=== PATIENT | male | born 1990 | race Caucasian/White ===

== ENCOUNTER 2019-03-10 08:30 | Emergency (ER) | payer MEDICARE, MEDICAID ==
[2019-03-10 08:41] VITALS: BP 131/77
[2019-03-10] MEDS ORDERED: LIDOCAINE 5% (700 MG) TRANSDERMAL ADH..PATCH TP ONE (09:25)
[2019-03-10] MEDS ORDERED: KETOROLAC TROMETHAMINE 60 MG/2 ML SDV IM ONE (09:25)
[2019-03-10] MEDS ORDERED: DEXAMETHASONE 4 MG TABLET PO ONE (09:25)
[2019-03-10] MEDS ORDERED: CYCLOBENZAPRINE HCL 10 MG TABLET PO ONE (09:25)
--- NOTE | 2019-03-10 09:29 | ER Document Report ---
HPI - HPI Time Seen by Provider: 03/10/19 09:20 Pain Level: 4 Notes: 28-year-old male patient with osteoarthritis in his back presenting with chronic back pain. Patient's mother is at bedside, they state that he has an appointment scheduled with pain management however it is not until April. His primary care is Dr. king. He denies any new trauma or injury. He denies any loss of control of bowel or bladder. - EENT EENT: DENIES: Sore Throat, Ear Pain, Eye problems - NEURO Neurology: DENIES: Headache, Weakness, Vision blurred - CARDIOVASCULAR Cardiovascular: DENIES: Chest pain - RESPIRATORY Respiratory: DENIES: Trouble Breathing, Coughing - GASTROINTESTINAL Gastrointestinal: DENIES: Abdominal Pain, Black / Bloody Stools - URINARY Urinary: DENIES: Dysuria, Urgency, Frequency - MUSCULOSKELETAL Musculoskeletal: DENIES: Extremity pain Past Medical History - General Information source: Patient - Social History Smoking Status: Never Smoker Chew tobacco use (# tins/day): No Frequency of alcohol use: None Drug Abuse: None Family History: Reviewed & Not Pertinent Patient has suicidal ideation: No Patient has homicidal ideation: No - Medical History Medical History: Negative Surgical Hx: Negative - Immunizations Immunizations up to date: Yes Vertical Provider Document - CONSTITUTIONAL Notes: PHYSICAL EXAMINATION: GENERAL: Well-appearing, well-nourished and in no acute distress. HEAD: Atraumatic, normocephalic. EYES: Pupils equal round extraocular movements intact, conjunctiva are normal. ENT: Nares patent NECK: Normal range of motion LUNGS: No respiratory distress Musculoskeletal: Tenderness in the lumbar paraspinous area bilaterally, no vertebral tenderness, step-off or deformity. NEUROLOGICAL: Face symmetric. Tongue protrudes midline. Extraocular motions intact. Pupils are 2 mm and equally reactive. Normal speech, normal gait. 5 out of 5 strength in both the distal and proximal upper and lower extremities bilaterally. Sensation is grossly intact throughout. Finger to nose testing normal. Pronator drift normal. PSYCH: Normal mood, normal affect. SKIN: Warm, Dry, normal turgor, no rashes or lesions noted. Course - Re-evaluation Re-evalutation: 03/10/19 09:27 Patient appears well, nontoxic, no red flag symptoms for cauda equina. Patient presenting with chronic back pain. Patient currently being set up for pain management. I explained to patient that we do not treat chronic back pain here in the emergency department. He needs to set up an appointment with his primary care provider. Patient will be medicated here in the emergency department I will prescribe a one-time prescription of 6 tablets of hydrocodone and I told him that this will not be able to be prescribed again. - Vital Signs Vital signs: Temp Pulse Resp BP Pulse Ox 97.9 F 103 H 16 131/77 H 99 03/10/19 08:36 03/10/19 08:36 03/10/19 08:36 03/10/19 08:36 03/10/19 08:36 Discharge - Discharge Clinical Impression: Back pain Qualifiers: Back pain location: low back pain Chronicity: acute Back pain laterality: right Sciatica presence: with sciatica Sciatica laterality: sciatica of right side Qualified Code(s): M54.41 - Lumbago with sciatica, right side Condition: Stable Disposition: HOME, SELF-CARE Additional Instructions: Low Back Pain Three out of every four people will have an episode of disabling back pain during their lifetime. Most commonly the pain is due to straining of the muscles and ligaments in the low back. Usual treatment includes: (1) Rest on a firm surface. Avoid lying on your stomach. (2) Ice pack the painful area. After a few days, gentle heat may be used intermittently to relax the area, or ice packs can be continued. (3) Medication may be needed -- muscle relaxers and antiinflammatory medicines are commonly used. (4) As the back improves, exercises are prescribed to strengthen the back and abdominal muscles. Your doctor will advise you on the proper care for your back at each stage in your recovery. You may be better in a few days -- or healing may take several weeks. If new symptoms of a "herniated disc" (radiation of pain, numbness, or ting ling down the back of the leg or weakness in the leg) occur, you should be re- examined. Further testing may be necessary. Chronic Back Pain Chronic back pain (pain persisting longer than three months) is a common problem. A medical evaluation can look for herniated disc, arthritis, osteoporosis, tumors, and infections. But at least half the time, there's no obvious treatable cause. Anxiety and depression tend to worsen back pain. Ibuprofen or other anti-inflammatory medicine can help. A heating pad, used for 15-20 minutes at a time, can ease pain. For this type of back pain, narcotic medicines should be avoided. Muscle relaxers are rarely helpful unless you're having spasms. Activity is important. Find an aerobic exercise program that your back can tolerate. Too much rest makes back pain worse. Specific back exercises are usually prescribed to strengthen the back and abdominal muscles. Often, a physical therapist can help. Avoid heavy lifting, working while bent over, or standing with both knees straight. Most back pain patients do better with a firm mattress. If new symptoms of a "herniated disc" (radiation of pain, numbness, or tingling down the back of the leg or weakness in the leg) occur, you should be re-examined. Prescriptions: Lidocaine [Lidoderm 5% (700 mg) Transdermal Patch] 1 patch TP DAILY #30 adh..patch Hydrocodone/Acetaminophen [[place] 5-325 mg Tablet] 1 tab PO Q6H #6 tablet
== END 2019-03-10 09:45 | disposition home or self-care (01) ==
LOC: ER 08:30
DX: M47.9 Spondylosis, unspecified (principal); M54.41 Lumbago with sciatica, right side; G89.29 Other chronic pain
CPT/HCPCS: 99283; 96372; A9270 ×3; J1885; J8540

== ENCOUNTER 2020-01-19 08:24 | Emergency (ER) | payer MEDICARE, MEDICAID ==
[2020-01-19 09:25] LABS: ABSOLUTE BASOPHILS # (AUTO) 0.1 10^3/uL (0.0-0.2); ABSOLUTE EOSINOPHILS # (AUTO) 0.1 10^3/uL (0.0-0.6); ABSOLUTE MONOCYTES (AUTO) 0.8 10^3/uL (0.1-1.4); ABSOLUTE NEUT (AUTO) 8.1 10^3/uL (1.7-8.2); BASOPHILS % (AUTO) 0.6 % (0-2); EOSINOPHILS % (AUTO) 0.7 % (0-6); HEMATOCRIT 51.3 % (37.9-51.0); HEMOGLOBIN 18.1 g/dL (13.5-17.0); LYMPHOCYTES % (AUTO) 24.8 % (13-45); MEAN CORPUSCULAR HEMOGLOBIN 30.8 pg (27.0-33.4); MEAN CORPUSCULAR HGB CONC 35.3 g/dL (32.0-36.0); MEAN CORPUSCULAR VOLUME 87 fl (80-97); MONOCYTES % (AUTO) 6.7 % (3-13); PLATELET COUNT 247 10^3/uL (150-450); RED BLOOD COUNT 5.89 10^6/uL (4.35-5.55); RED CELL DISTRIBUTION WIDTH 13.3 % (11.5-14.0); SEGMENTED NEUTROPHILS % (AUTO) 67.2 % (42-78); TOTAL CELLS COUNTED % (AUTO) 100 %
[2020-01-19 09:37] LABS: APPEARANCE,URINE SLIGHTLY-CLOUDY; BILIRUBIN,URINE NEGATIVE (NEGATIVE); COLOR,URINE YELLOW; GLUCOSE, URINE NEGATIVE (NEGATIVE); KETONES,URINE NEGATIVE (NEGATIVE); LEUKOCYTE ESTERASE,URINE NEGATIVE (NEGATIVE); NITRITE,URINE NEGATIVE (NEGATIVE); PROTEIN,URINE 30 mg/dL (NEGATIVE)
[2020-01-19 10:02] LABS: ALBUMIN 4.6 g/dL (3.5-5.0); ALKALINE PHOSPHATASE 107 U/L (38-126); ANION GAP 12 (5-19); ASPARTATE AMINO TRANSFERASE 39 U/L (17-59); BILIRUBIN,DIRECT 0.1 mg/dL (0.0-0.4); BILIRUBIN,TOTAL 0.5 mg/dL (0.2-1.3); BLOOD UREA NITROGEN 11 mg/dL (7-20); CALCIUM 10.1 mg/dL (8.4-10.2); CARBON DIOXIDE 28 mmol/L (22-30); CHLORIDE 101 mmol/L (98-107); GLUCOSE 102 mg/dL (75-110); POTASSIUM 4.6 mmol/L (3.6-5.0)
[2020-01-19] MEDS ORDERED: NORMAL SALINE 1000 ML 1,000 ML IV ONE (10:13)
[2020-01-19] MEDS ORDERED: KETOROLAC TROMETHAMINE INJ/PF 30 MG/1 ML SDV IV ONE (10:13)
--- NOTE | 2020-01-19 10:16 | ER Document Report ---
ED Medical Screen (RME) - General Chief Complaint: Flank Pain Stated Complaint: LEFT FLANK PAIN,NAUSEA Time Seen by Provider: 01/19/20 10:13 Primary Care Provider: AMADOR JEONG PA-C [Primary Care Provider] - Follow up as needed Mode of Arrival: Ambulatory Information source: Patient Notes: 29-year-old was in the ED for right flank pain yesterday morning. Patient woke up this morning with a pain 5 out of 5 with nausea and vomiting. He states his pain now is a 3. She is alert oriented respirations regular nonlabored speaking in full sentences but is in a lot of pain. He states his mother told him he had a kidney stone but she is not a doctor so he came to the emergency room. I have greeted and performed a rapid initial assessment of this patient. A comp rehensive ED assessment and evaluation of the patient, analysis of test results and completion of medical decision making process will be conducted by an additional ED providers. - Related Data Allergies/Adverse Reactions: No Known Allergies Allergy (Unverified 03/10/19 09:20) Past Medical History - Social History Chew tobacco use (# tins/day): No Frequency of alcohol use: None Drug Abuse: None - Immunizations Immunizations up to date: Yes Physical Exam - Vital signs Vitals: Temp Pulse Resp BP Pulse Ox 97.2 F 105 H 20 127/76 H 96 01/19/20 08:30 01/19/20 08:30 01/19/20 08:30 01/19/20 08:30 01/19/20 08:30 Course - Vital Signs Vital signs: Temp Pulse Resp BP Pulse Ox 97.2 F 105 H 20 127/76 H 96 01/19/20 08:30 01/19/20 08:30 01/19/20 08:30 01/19/20 08:30 01/19/20 08:30 - Laboratory Result Diagrams: 01/19/20 09:06 01/19/20 09:06 Laboratory results interpreted by me: 01/19/20 01/19/20 01/19/20 09:06 09:06 09:06 WBC 12.0 H RBC 5.89 H Hgb 18.1 H Hct 51.3 H ALT 57 H Urine Protein 30 H Urine Blood LARGE H Urine Urobilinogen 2.0 H Doctor's Discharge - Discharge Referrals: AMADOR JEONG PA-C [Primary Care Provider] - Follow up as needed
--- NOTE | 2020-01-19 11:22 | RADIOLOGY REPORT (SQ) ---
EXAM DESCRIPTION: CT ABD/PELVIS NO ORAL OR IV IMAGES COMPLETED DATE/TIME: 01/19/2020 10:51 am REASON FOR STUDY: left flank pain COMPARISON: None. TECHNIQUE: CT scan of the abdomen and pelvis performed without intravenous or oral contrast. Images reviewed with lung, soft tissue, and bone windows. Reconstructed coronal and sagittal MPR images revi ewed. All images stored on PACS. All CT scanners at this facility use dose modulation, iterative reconstruction, and/or weight based d osing when appropriate to reduce radiation dose to as low as reasonably achievable (ALARA). [facility]: Dose Right [facility]: CareDose [facility]: Dose Right [facility]: Teradose 4D [facility]: Smart Pradama RADIATION DOSE: CT Rad equipment meets quality standard of care and radiation dose reduction techniq ues were employed. CTDIvol: 18.2 mGy. DLP: 1137 mGy-cm.mGy. LIMITATIONS: None. FINDINGS: LOWER CHEST: No significant findings. No nodules or infiltrates. NON-CONTRASTED LIVER, SPLEEN, ADRENALS: Evaluation limited by lack of IV contrast. No identified sign ificant masses. PANCREAS: No masses. No peripancreatic inflammatory changes. GALLBLADDER: No identified stones by CT criteria. No inflammatory changes to suggest cholecystitis. RIGHT KIDNEY AND URETER: No suspicious masses. Assessment limited by lack of IV contrast. No signif icant calcifications. No hydronephrosis or hydroureter. LEFT KIDNEY AND URETER: No suspicious masses. Assessment limited by lack of IV contrast. 1 to 2 mm proximal left ureteral stone. No hydronephrosis. Minimal left perinephric stranding. AORTA AND RETROPERITONEUM: No aneurysm. No retroperitoneal masses or adenopathy. BOWEL AND PERITONEAL CAVITY: No obvious masses or inflammatory changes. No free fluid. APPENDIX: Normal. PELVIS, BLADDER, AND ABDOMINAL WALL:No abnormal masses. No free fluid. Bladder normal. BONES: No significant findings. OTHER: No other significant finding. IMPRESSION: 1 to 2 mm proximal left ureteral stone. No hydronephrosis. There is mild left perineph martha stranding. COMMENT: Quality ID # [id number]: Final reports with documentation of one or more dose reduction techniques (e.g., Automated exposure control, adjustment of the mA and/or kV according to patient size, use of iterative reconstruction technique) TECHNICAL DOCUMENTATION: JOB ID: [id number] [employer]- All Rights Reserved Reading location - IP/workstation name: [email or web address]
--- NOTE | 2020-01-19 12:08 | ER Document Report ---
Entered by LATRELL MACKEY SCRIBE 01/19/20 1103 Acting as scribe for:KAMINI SIMEON MD ED GI/ - General Chief Complaint: Flank Pain Stated Complaint: LEFT FLANK PAIN,NAUSEA Time Seen by Provider: 01/19/20 10:13 Primary Care Provider: AMADOR JEONG PA-C [Primary Care Provider] - Follow up as needed MAVIS SANDOVAL MD [NO LOCAL MD] - Follow up in 3-5 days Mode of Arrival: Ambulatory Information source: Patient Notes: This 29 year old male patient presents to the ED today with complaints of left flank pain that started yesterday morning. Patient states that he did take BC's yesterday which provided relief, but the pain returned around 0400 this morning. Pain does radiate to his groin on the left side. He reports associated nausea an d vomiting, but denies any nauseousness at this time. He is also pain-free at this time after receiving Toradol. Denies history of kidney stones. - Related Data Allergies/Adverse Reactions: No Known Allergies Allergy (Unverified 03/10/19 09:20) Past Medical History - General Information source: Patient - Social History Smoking Status: Current Every Day Smoker Smoking Education Provided: No Frequency of alcohol use: None Drug Abuse: None Lives with: Family Family History: Reviewed & Not Pertinent Patient has suicidal ideation: No Patient has homicidal ideation: No Psychiatric Medical History: Reports: Hx Schizoaffective Disorder - Immunizations Immunizations up to date: Yes Review of Systems - Review of Systems Constitutional: No symptoms reported EENT: No symptoms reported Cardiovascular: No symptoms reported Respiratory: No symptoms reported Gastrointestinal: See HPI, Nausea, Vomiting Genitourinary: See HPI, Flank pain Male Genitourinary: No symptoms reported Musculoskeletal: No symptoms reported Skin: No symptoms reported Hematologic/Lymphatic: No symptoms reported Neurological/Psychological: No symptoms reported -: Yes All other systems reviewed and negative Physical Exam - Vital signs Vitals: Temp Pulse Resp BP Pulse Ox 97.2 F 105 H 20 127/76 H 96 01/19/20 08:30 01/19/20 08:30 01/19/20 08:30 01/19/20 08:30 01/19/20 08:30 - General General appearance: Appears well, Alert In distress: None - HEENT Head: Normocephalic, Atraumatic Eyes: Normal Pupils: PERRL - Respiratory Respiratory status: No respiratory distress Chest status: Nontender Breath sounds: Normal Chest palpation: Normal - Cardiovascular Rhythm: Regular Heart sounds: Normal auscultation Murmur: No - Abdominal Inspection: Obese Distension: No distension Bowel sounds: Normal Tenderness: Nontender - Abdomen soft. No: Rebound Organomegaly: No organomegaly - Back Back: CVA tenderness - Left-sided CVA tenderness to percussion - Extremities General upper extremity: Normal inspection General lower extremity: Normal inspection. No: Edema - Neurological Neuro grossly intact: Yes Orientation: AAOx4 [place] Coma Scale Eye Opening: Spontaneous [place] Coma Scale Verbal: Oriented [place] Coma Scale Motor: Obeys Commands [place] Coma Scale Total: 15 - Psychological Associated symptoms: Normal affect, Normal mood - Skin Skin Temperature: Warm Skin Moisture: Dry Skin Color: Normal Course - Re-evaluation Re-evalutation: 01/20/20 06:56 Patient is pain-free after receiving IV ketorolac. - Vital Signs Vital signs: Temp Pulse Resp BP Pulse Ox 98 F 81 18 132/71 H 96 01/19/20 12:29 01/19/20 12:29 01/19/20 12:29 01/19/20 12:29 01/19/20 12:29 01/20/20 06:57 Vital signs stable - Laboratory Result Diagrams: 01/19/20 09:06 01/19/20 09:06 Laboratory results interpreted by me: 01/19/20 01/19/20 01/19/20 09:06 09:06 09:06 WBC 12.0 H RBC 5.89 H Hgb 18.1 H Hct 51.3 H ALT 57 H Urine Protein 30 H Urine Blood LARGE H Urine Urobilinogen 2.0 H 01/20/20 06:57 Laboratory shows a white blood cell count 12.0 and a hemoglobin of 18. Patient's urine showed large amount of blood and urine protein 30. Laboratories indicate patient was dehydrated and most likely had a kidney stone that was passing through the left ureter with left flank pain - Diagnostic Test Radiology reviewed: Image reviewed, Reports reviewed Radiology results interpreted by me: 01/19/20 11:33 Abdomen/Pelvis CT 01/19/20 10:13 IMPRESSION: 1 to 2 mm proximal left ureteral stone. No hydronephrosis. There is mild left perinephric stranding. 01/20/20 06:58 CT scan shows a 2 mm proximal left ureteral stone with no hydronephrosis is mild perinephric stranding. Discharge - Discharge Clinical Impression: Kidney stone on left side Condition: Stable Disposition: HOME, SELF-CARE Additional Instructions: Kidney Stone You are passing or have passed a kidney stone. These stones are usually due to increased calcium or uric acid concentrations in your urine. Stones within the kidney itself are not painful. The pain occurs as the stone leaves the kidney to pass down the long tube, called the ureter, leading to the bladder. If the stone is small, it will usually pass by itself. Most patients can pass the stone at home. You will usually receive medications for pain, nausea or vomiting, and sometimes a medication to assist in passing the kidney stone. However, if the pain is very severe or if vomiting prevents you from taking oral pain medications, you may need to return for further treatment. Drink three or four quarts of fluids per day. You will be given pain medication (if needed) and urine strainers. Strain all your urine to see if the stone passes. If your doctor has asked you to bring the stone in for analysis, return with the stone once it has passed. Return if pain or vomiting become severe, if you develop a high fever, if you are unable to pass your urine, or if other unusual symptoms occur. Prescriptions: Tamsulosin HCl [Flomax 0.4 mg Cap.sr] 0.4 mg PO DAILY #7 cap.sr.24h Ibuprofen [Ibu] 800 mg PO TID PRN 7 Days #21 tablet PRN Reason: prn pain/swelling/fever Oxycodone HCl/Acetaminophen [Percocet 5-325 mg Tablet] 1 - 2 tab PO Q4H PRN #10 tablet PRN Reason: Ondansetron [Zofran Odt 4 mg Tablet] 1 - 2 tab PO Q4H PRN #15 tab.rapdis PRN Reason: For Nausea/Vomiting Referrals: AMADOR JEONG PA-C [Primary Care Provider] - Follow up as needed MAVIS SANDOVAL MD [NO LOCAL MD] - Follow up in 3-5 days I personally performed the services described in the documentation, reviewed and edited the documentation which was dictated to the scribe in my presence, and it accurately records my words and actions.
[2020-01-19 12:31] VITALS: BP 132/71
== END 2020-01-19 12:31 | disposition home or self-care (01) ==
LOC: ER 08:24
DX: N20.0 Calculus of kidney (principal); N20.1 Calculus of ureter; R10.9 Unspecified abdominal pain; R11.2 Nausea with vomiting, unspecified; E66.9 Obesity, unspecified; F17.200 Nicotine dependence, unspecified, uncomplicated
CPT/HCPCS: 99285; 96361; 96374; 36415; 83690; 85025; 80053; 81001; 74176; J1885; J7030